=== PATIENT | female | born 1990 | race Caucasian/White ===

== ENCOUNTER 2019-08-15 19:02 | Emergency (ER) | payer SELFPAY ==
[~2019-08-15] VITALS: Ht 157.5 cm; Wt 113.6 kg
[~2019-08-15 19:02] MED LIST: CLOPIDOGREL; EPIDRIN; INDERAL; TOPAMAX 100MG100 MG PO
[2019-08-15 19:25] LABS: COLLECTION METHOD CLEAN CATCH
[2019-08-15 19:30] LABS: PH 7 (5-8); SQUAMOUS EPITHELIAL 0-2 /hpf; URINE APPEARANCE Clear; URINE BACTERIA Rare /hpf; URINE BILIRUBIN Negative (NEGATIVE); URINE BLOOD Negative (NEGATIVE); URINE COLOR Yellow; URINE GLUCOSE Negative (NEGATIVE); URINE KETONE Negative (NEGATIVE); URINE LEUKOCYTE ESTERASE Negative (NEGATIVE); URINE NITRATE Negative (NEGATIVE); URINE PROTEIN(semi-quant) Negative (NEGATIVE); URINE RBC 0-2 /hpf; URINE UROBILINOGEN Negative (NEGATIVE)
[2019-08-15 21:20] LABS: BASO % 0.4 % (0.0-2.0); EOS % 0.4 % (0-4.0); GRAN # 5.5 (1.4-6.5); GRAN % 78.2 % (42.2-75.2); HEMOGLOBIN 11.4 g/dl (12.5-16.0); LYMPH # 1.1 (1.2-3.4); LYMPH % 15.9 % (20.0-51.0); MEAN CELL VOLUME 90 fl (80.0-100.0); MEAN CORPUSCULAR HEMOGLOBIN 28 pg (27.0-31.0); MEAN CORPUSCULAR HGB CONC 32 g/dl (33.0-37.0); MEAN PLATELET VOLUME 11.4 fl (7.4-10.4); MONO # 0.3 (0.1-0.6); MONO % 4.8 % (1.7-9.3); PLATELET COUNT 188 K/mm3 (130-400); RED BLOOD COUNT 4.03 M/mm3 (4.10-5.30); REDCELL DISTRIBUTION WIDTH-CV 15.3 % (11.5-14.5)
[2019-08-15 21:26] LABS: ALBUMIN 4.2 gm/dL (3.5-5.0); BILIRUBIN,TOTAL 0.6 mg/dL (0.0-1.0); CREATININE, serum 0.45 (0.52-1.25); POTASSIUM 3.7 mmol/L (3.4-5.0); TOTAL PROTEIN 7.4 gm/dL (6.4-8.2)
[2019-08-15 21:31] LABS: HEMATOCRIT 36.1 % (37.0-47.0)
[2019-08-15] MEDS ORDERED: PHENERGAN 25 TA25 MG PO (22:21)
[2019-08-15] MEDS ORDERED: PRENATAL MVI PO (22:21)
[2019-08-15 22:30] VITALS: BP 154/90; PULSE 92; TEMP 98.7
== END 2019-08-15 22:29 | disposition home or self-care (01) ==
LOC: COL.ER
PROVIDERS: Emergency Medicine
DX: O21.0 Mild hyperemesis gravidarum (principal); Z3A.01 Less than 8 weeks gestation of pregnancy; Z79.02 Long term (current) use of antithrombotics/antiplatelets

== ENCOUNTER → 2020-03-27 | Outpatient (CLI) | payer MEDICAID ==
[~2020-03-27] MED LIST changes: +PHENERGAN 25 TA25 MG PO; +PRENATAL MVI PO
== END ==
LOC: ZCOL.LAB 08:22
DX: Z20.828 Contact with and (suspected) exposure to other viral communicable diseases (principal)

== ENCOUNTER 2020-04-01 08:26 | Inpatient (IN) | payer MEDICAID ==
[2020-04-01] VITALS (7 sets, daily range): BP systolic 129–141; BP diastolic 65–91; PULSE 78–96; TEMP 98.3
[~2020-04-01] VITALS: Ht 157.5 cm; Wt 111.4 kg
--- NOTE | 2020-04-01 19:15 | NUR ---
1915 G1L0 39.6 WEEK GEST TO LR5 FOR CYTOTEC INDUCTION. EFM ON. ADM ASSESSMENT COMPLETED AND PERMITS SIGNED. STATES HAD COVID TEST AND WAS NEGATIVE. CHRONIC HYPERTENTION SINCE SHE WAS 15 AND TAKES PO LOBATALOL FOR IT. STATES FROM AND FOB IS NOT INVOLVED. HER MOTHER IS SUPPORT PERSON.
[2020-04-01] MEDS ORDERED: TRANDATE 200MG200 MG PO (19:33)
--- NOTE | 2020-04-01 20:20 | NUR ---
2019 INT STARTED IN LEFT FOREARM. DR RIVERA CALLED IN FOR REPORT. SVE /2. ORDERS RECEIVED. PT TO TAKE OWN LOBATALOL AT BEDTIME. 2024 CYTOTEC 50 MCG PO GIVEN.
[2020-04-01 20:54] LABS: BASO % 0.3 % (0.0-2.0); EOS # 0.1 (0.0-0.7); EOS % 0.6 % (0-4.0); GRAN # 6.9 (1.4-6.5); GRAN % 77.3 % (42.2-75.2); LYMPH # 1.4 (1.2-3.4); LYMPH % 15.2 % (20.0-51.0); MEAN CELL VOLUME 91 fl (80.0-100.0); MEAN CORPUSCULAR HGB CONC 32 g/dl (33.0-37.0); MEAN PLATELET VOLUME 11.7 fl (7.4-10.4); MONO # 0.6 (0.1-0.6); MONO % 6.3 % (1.7-9.3); PLATELET COUNT 157 K/mm3 (130-400); RED BLOOD COUNT 3.41 M/mm3 (4.10-5.30); REDCELL DISTRIBUTION WIDTH-CV 15.4 % (11.5-14.5)
[2020-04-01 21:00] LABS: HEMATOCRIT 31.1 % (37.0-47.0); HEMOGLOBIN 9.9 g/dl (12.5-16.0); MEAN CORPUSCULAR HEMOGLOBIN 29 pg (27.0-31.0)
--- NOTE | 2020-04-01 21:15 | NUR ---
2114 BABY VERY ACTIVE. UNABLE TO GET CONTINUOUS STRIP ON BABY WHILE MOVING. EFM OFF AND UP TO BR TO VOID.
--- NOTE | 2020-04-01 23:00 | NUR ---
2300 EFM OFF. UP TO BR AND AMB IN ROOM AND HALLWAY.
--- NOTE | 2020-04-01 23:45 | NUR ---
2345 RETURNED TO BED AND EFM ON. BABY VERY ACTIVE AND HARD TO TRACE CONTINUOUSLY DUE TO MOMS POSITION AND ACTIVITY. 0025 CYTOTEC 25 MCG PO GIVEN AND VISTARIL 50MG PO GIVEN. RESTING QUIETLY WITH LIGHTS OUT.
[2020-04-02] VITALS (67 sets, daily range): BP systolic 116–155; BP diastolic 60–96; PULSE 59–95; TEMP 97.6–98.8
--- NOTE | 2020-04-02 04:30 | NUR ---
0430 AWAKENED. SHOWER OFFERED. UP TO BR TO VOID BUT REFUSES SHOWER. LIGHT BREAKFAST TAKEN. RETURNED TO BED.
--- NOTE | 2020-04-02 06:30 | NUR ---
Assumed care of patient. Rests in bed, alert. Request to use the bathroom. Ambulates the bathroom and back. Denies any other needs at this time.
--- NOTE | 2020-04-02 07:00 | NUR ---
Rests in bed with eyes closed. Resperations even and unlabored.
--- NOTE | 2020-04-02 08:30 | NUR ---
Ambulates to the bathroom and back. States feeling some cramping and pressure down there.
--- NOTE | 2020-04-02 08:45 | NUR ---
0813 Dr. Jeffery here, arom done. Large amount of clear fluid noted. Pad changed.
--- NOTE | 2020-04-02 09:30 | NUR ---
Ambulates to the bathroom. States has to poop. Moderate amount of stool noted. Back to bed.
[2020-04-02 09:53] LABS: COLLECTION METHOD CLEAN CATCH
[2020-04-02 10:13] LABS: PH 8 (5-8); URINE APPEARANCE Cloudy; URINE BILIRUBIN Negative (NEGATIVE); URINE BLOOD 2+ (NEGATIVE); URINE COLOR Yellow; URINE GLUCOSE 1+ (NEGATIVE); URINE KETONE Negative (NEGATIVE); URINE LEUKOCYTE ESTERASE Negative (NEGATIVE); URINE NITRATE Negative (NEGATIVE); URINE PROTEIN(semi-quant) 2+ (NEGATIVE); URINE UROBILINOGEN Negative (NEGATIVE)
--- NOTE | 2020-04-02 10:15 | NUR ---
Pitocin decreased to 26 home units because of contractions coming every 1.5 minutes.
[2020-04-02 10:19] LABS: MUCOUS Present /lpf; URINE BACTERIA Many /hpf
[2020-04-02 10:20] LABS: URINE WBC 0-2 /hpf
[2020-04-02 10:21] LABS: ALBUMIN 3.4 gm/dL (3.5-5.0); BILIRUBIN,TOTAL 0.5 mg/dL (0.0-1.0); CALCIUM 8.7 mg/dL (8.4-10.2); CREATININE, serum 0.49 (0.52-1.25); POTASSIUM 3.9 mmol/L (3.4-5.0); TOTAL PROTEIN 6.8 gm/dL (6.4-8.2)
--- NOTE | 2020-04-02 10:45 | NUR ---
States feeling contractions and breathes through them. Denies wanting any pain medication at this time.
--- NOTE | 2020-04-02 11:00 | NUR ---
Ambulates to the bathroom and back. States felt like I had to pee but could not. Breathes through contractions. Denies wanting any pain medication at this time.
--- NOTE | 2020-04-02 11:15 | NUR ---
1120 Request epidural, anesthesia notified. Fluid bolus given as ordered.
--- NOTE | 2020-04-02 11:45 | NUR ---
1152 Anesthesia here, visits with patient. Sits up for epidural. 1159 Space obtained by anesthesia Steffanie Ly. 1201 Catheter placed and test dose given by anesthesia. Lies down after.
--- NOTE | 2020-04-02 12:30 | NUR ---
1238 Mendoza catheter placed per sterile technique. Iliana-care done, pad changed.
--- NOTE | 2020-04-02 13:00 | NUR ---
1306 Dr. Jeffery here, iupc placed per sterile technique.
--- NOTE | 2020-04-02 14:15 | NUR ---
Rests in bed, alert. Denies any pain or needs at this time.
--- NOTE | 2020-04-02 17:00 | NUR ---
Dr. Jeffery here, vag exam done. Reports to patient dilated to four. Visits with patient about section. 1710 Patient agrees to go ahead with section. Prepped for section. 1725 To o.r. via bed with two r.n.
--- NOTE | 2020-04-02 19:20 | NUR ---
1919 EPID CATH DCD. PO TAKEN WITH NO PROBLEMS. BABY IN ROOM.
--- NOTE | 2020-04-02 21:05 | NUR ---
2104 REG DIET TAKEN. IV TO INT. PERICARE DONE. MOVES LEGS WELL. ABD BINDER ON. 2129 PERCOCET X2 PO FOR INC DISCOMFORT. BABY AT BEDSIDE.
[2020-04-03 04:00] VITALS: BP 126/76; PULSE 90; TEMP 97.5
[2020-04-03 07:25] VITALS: BP 101/63; PULSE 83; TEMP 97.9
[2020-04-03 08:55] VITALS: BP 143/83; PULSE 89
--- NOTE | 2020-04-03 09:04 | NUR ---
Initial visit; Patient thanked Electrical Maintenance Man for offering congratulations and God's blessings for the of her daughter. Electrical Maintenance Man thanked mom for choosing [facility].
[2020-04-03] MEDS ORDERED: IBU600 MG PO (09:10)
[2020-04-03] MEDS ORDERED: PERCOCET 325 MG1 TA2 PO (09:11)
[2020-04-03 11:20] VITALS: BP 128/68; PULSE 86; TEMP 97.8
[2020-04-03 15:35] VITALS: BP 151/69; PULSE 101; TEMP 97.6
[2020-04-03 19:30] VITALS: BP 139/83; PULSE 96; TEMP 98.4
[2020-04-04 06:57] VITALS: BP 107/58; PULSE 75; TEMP 97.9
== END 2020-04-04 15:55 | disposition home or self-care (01) | DRG 787 ==
LOC: OB 08:26 → LDR 19:19 → OB 04-02 12:33
PROVIDERS: ADMIT Obstetrics & Gynecology
PROC: 10D00Z1 Extraction of Products of Conception, Low, Open Approach (ICD-10-PCS; principal; 2020-04-03)
DX: O61.9 Failed induction of labor, unspecified (principal); O10.92 Unspecified pre-existing hypertension complicating childbirth; O99.02 Anemia complicating childbirth; D64.9 Anemia, unspecified; O99.214 Obesity complicating childbirth; O69.81X0 Labor and delivery complicated by cord around neck, without compression, not applicable or unspecified; E66.9 Obesity, unspecified; Z3A.40 40 weeks gestation of pregnancy; Z37.0 Single live birth
CPT/HCPCS: J0690; J1885; J2370; J2400; J2405; J2590; J7120